=== PATIENT | female | born 1990 | race African-American/Black ===

== ENCOUNTER 2024-01-05 14:02 | Outpatient (CLI) | payer MEDICAID, SELFPAY ==
[2024-01-05 14:18] LABS: Hematocrit 35.7 % (37.0-47.0); Hemoglobin 12.3 g/dL (12.0-15.0); Mean Corpuscular HGB Conc 34.5 g/dl (32-36); Mean Corpuscular Hemoglobin 31.5 pg (26-34); Mean Corpuscular Volume 91.3 fl (80-100); Mean Platelet Volume 10.2 fl (7.4-10.4); Platelet Count Result 245 k/mm3 (150-375); Red Blood Count 3.91 M/mm3 (4.2-5.4); Red Cell Distribution Width 13.7 % (11.5-14.5); White Blood Count 6.6 K/mm3 (4.5-10.0)
[2024-01-05 15:12] LABS: Thyroid Stimulating Hormone 0.421 uIU/mL (0.465-4.680)
[2024-01-05 15:21] LABS: HIV 1/2 Ab P24 Ag Result Negative (Negative)
[2024-01-06 08:24] LABS: Rapid Plasma Reagin Non-Reactive (NonReactive)
== END 2024-01-05 14:03 | disposition home or self-care (01) ==
LOC: ANHLAB 14:04
PROVIDERS: Visit Provider Nurse Practitioner Obstetrics & Gynecology
DX: Z34.90 Encounter for supervision of normal pregnancy, unspecified, unspecified trimester (principal); Z3A.00 Weeks of gestation of pregnancy not specified
CPT/HCPCS: 36415; 84443; 85027; 86592; 86703; G0432

== ENCOUNTER 2024-02-08 06:21 | Inpatient (IN) | payer MEDICAID, SELFPAY ==
[2024-02-08] VITALS (41 sets, daily range): BP systolic 87–125; BP diastolic 45–80; PULSE 57–121; RESP 16; TEMP 36.1–36.5; BMI 36.5
[2024-02-08 07:09] LABS: Basophils Percent Auto 0.3 % (0.2-1.2); Eosinophils Absolute Auto 0.1 K/mm3 (0-0.3); Eosinophils Percent Auto 0.7 % (0-4.4); Hematocrit 35.5 % (37.0-47.0); Hemoglobin 12.3 g/dL (12.0-15.0); Immature Granulocyte Absolute 0.02 K/mm3 (0.00-0.031); Immature Granulocyte Percent A 0.3 % (0-0.5); Lymphocytes Absolute Auto 2.51 K/mm3 (0.9-3.2); Lymphocytes Percent Auto 36.6 % (18.3-44.2); Mean Corpuscular HGB Conc 34.6 g/dl (32-36); Mean Corpuscular Hemoglobin 31.6 pg (26-34); Mean Corpuscular Volume 91.3 fl (80-100); Mean Platelet Volume 10.9 fl (7.4-10.4); Monocytes Absolute Auto 0.5 K/mm3 (0.1-0.6); Neutrophils Absolute Auto 3.8 K/mm3 (1.3-6.7); Neutrophils Percent Auto 55.1 % (45.5-73.1); Platelet Count Result 232 k/mm3 (150-375); Red Blood Count 3.89 M/mm3 (4.2-5.4); White Blood Count 6.9 K/mm3 (4.5-10.0)
[2024-02-08] MEDS: miSOPROStol 25 MCG TABLET 50 MCG BUCCAL ×3 (07:20→19:32)
--- NOTE | 2024-02-08 07:20 | LDADM ---
This patient, Christy Holly, was admitted to Labor/Delivery/Recovery 107 on 02/08/24 at 06:21. Plans for labor, pain management and were discussed with patient. Patient/family oriented to hospital policies and general routines including ID bracelet, bed and alarms, visiting hours, pain management, procedures, bathroom and other care routines, personal items, smoking policy, room service/diet and guest tray routines, security routines, and visiting hours. Patient/Family are encouraged to report perceived risks to care and to ask questions if they do not understand what they are told or what they should do. See OBIX for further documentation.
[2024-02-08 08:08] LABS: HIV 1/2 Ab P24 Ag Result Negative (Negative)
[2024-02-08 13:05] LABS: Rapid Plasma Reagin Non-Reactive (NonReactive)
[2024-02-09] VITALS (311 sets, daily range): BP systolic 92–129; BP diastolic 34–104; PULSE 25–134; RESP 16; TEMP 36.3–36.6; O2SAT 83–100
[2024-02-09] MEDS: LACTATED RINGERS 1,000 ML 125 ML IV CONT ×4 (04:49→17:52)
[2024-02-09] MEDS: OXYTOCIN 30 UNITS/NS 500 ML 30 UNITS/500 ML BAG IV CONT (04:49)
[2024-02-09] MEDS: fentaNYL CITRATE INJ (*CRX) 100 MCG/2 ML VIAL 50 MCG IV PUSH (10:56)
[2024-02-09] MEDS: ONDANSETRON INJ 4 MG/2 ML VIAL IV PUSH (10:56)
--- NOTE | 2024-02-09 11:45 | P.HP_ITS ---
H&P: HPI History of Present Illness Date/Time: 02/09/24 11:45 Chief Complaint: Induction of labor Narrative: patient is a 33-year-old G 1 at 39 weeks with an EDC of 02/15/2024 by last menstrual period of 05/11/2023 consistent with 12 week ultrasound. course significant for transfer care at 34 weeks. Also she had a thickened nuchal fold on her 1st trimester ultrasound with normal NIPT male . History of LGA at 31 weeks though her last ultrasound in January was 64th percentile. Labs reviewed. GBS negative. she has been informed of risks benefits of induction of labor versus spontaneous labor. The father of the child is flying in from out of the country and [place],she request induction of labor. Review of Systems Review of Systems: All systems reviewed & are unremarkable except as noted in HPI and below Constitutional: Constitutional: Reports no additional constitutional complaints and Denies headache(s) Eyes: Eyes: Denies spots in vision ENT: Reports system reviewed and no additional complaints, except as documented and Denies headache(s) Cardiovascular: Cardiovascular: Denies chest pain and Denies dyspnea Respiratory: Respiratory: Denies dyspnea Gastrointestinal: Gastrointestinal: Reports no additional gastrointestinal complaints Genitourinary: Genitourinary: Reports amenorrhea Musculoskeletal: Musculoskeletal: Reports no additional musculoskeletal complaints Integumentary/Breasts: Skin/Breast: Denies breast mass and Denies rash Neurologic: Denies headache(s) Psychiatric: Psychiatric: Reports no additional psychiatric complaints [facility] Surgical History Surgical History H/O removal of cyst Family History Family History Grandparent Heart disease Hypertension Social History Social History Smoking status: Never smoker Second hand tobacco smoke exposure: No Alcohol intake: former Substance use: never Substance use type: does not use Do You Feel Safe in your Home?: Yes Lack of Transportation: No Lack of Food: Never True Current Housing: I Have Housing Concerned About Future Housing: No Difficulty Paying Gas/Electric Bills: No Difficulty Paying for Meds: No Currently Unemployed: No Education: High School Diploma/GED Difficulty w/ Childcare or Family Care: No Spiritual care concerns: No Meds Home Medications and Allergies Home Medications ?Medication ?Instructions ?Recorded ?Confirmed ?Type vit no.95-ferrous 1 tablet PO DAILY 02/08/24 02/08/24 History fumarate 28 mg-folic acid 800 mcg tablet () Allergies Allergy/AdvReac Type Severity Reaction Status Date / Time No Known Allergies Allergy Verified 02/08/24 07:37 Vital Signs Vital Signs - 24 hr 02/08/24 12:01 02/08/24 12:29 02/08/24 12:31 Temperature Pulse Rate 73 67 72 Respiratory Rate Blood Pressure 115/78 115/73 112/77 Pulse Oximetry 02/08/24 13:01 02/08/24 13:21 02/08/24 13:31 Temperature Pulse Rate 78 121 H 79 Respiratory Rate Blood Pressure 101/72 114/78 117/68 Pulse Oximetry 02/08/24 14:00 02/08/24 14:01 02/08/24 14:31 Temperature 97.4 F L Pulse Rate 70 66 Respiratory Rate 16 Blood Pressure 93/45 L 92/46 L Pulse Oximetry 02/08/24 15:01 02/08/24 15:31 02/08/24 16:01 Temperature Pulse Rate 101 H 65 61 Respiratory Rate Blood Pressure 100/66 104/63 95/47 L Pulse Oximetry 02/08/24 16:31 02/08/24 17:01 02/08/24 17:30 Temperature 97 F L Pulse Rate 88 66 Respiratory Rate 16 Blood Pressure 110/77 113/72 Pulse Oximetry 02/08/24 17:31 02/08/24 18:00 02/08/24 18:01 Temperature 97.6 F Pulse Rate 73 75 Respiratory Rate 16 Blood Pressure 121/75 110/72 Pulse Oximetry 02/08/24 18:31 02/08/24 19:27 02/08/24 19:31 Temperature Pulse Rate 79 70 67 Respiratory Rate Blood Pressure 125/80 109/78 117/76 Pulse Oximetry 02/08/24 20:01 02/08/24 20:31 02/08/24 21:01 Temperature Pulse Rate 70 67 70 Respiratory Rate Blood Pressure 118/73 116/72 118/75 Pulse Oximetry 02/08/24 21:31 02/08/24 22:00 02/08/24 22:01 Temperature 97 F L Pulse Rate 65 60 Respiratory Rate Blood Pressure 124/74 97/55 L Pulse Oximetry 02/08/24 22:47 02/08/24 23:01 02/08/24 23:31 Temperature Pulse Rate 66 58 L 57 L Respiratory Rate Blood Pressure 111/63 102/62 113/69 Pulse Oximetry 02/09/24 00:01 02/09/24 00:31 02/09/24 01:01 Temperature Pulse Rate 76 54 L 59 L Respiratory Rate Blood Pressure 113/81 92/53 L 97/52 L Pulse Oximetry 02/09/24 01:31 02/09/24 02:01 02/09/24 02:31 Temperature 97.3 F L Pulse Rate 53 L 50 L 54 L Respiratory Rate Blood Pressure 115/70 99/53 L 100/48 L Pulse Oximetry 02/09/24 02:40 02/09/24 02:45 02/09/24 02:50 Temperature Pulse Rate Respiratory Rate Blood Pressure Pulse Oximetry 98 98 99 02/09/24 02:55 02/09/24 03:00 02/09/24 03:01 Temperature Pulse Rate 68 Respiratory Rate Blood Pressure 118/68 Pulse Oximetry 98 99 02/09/24 03:05 02/09/24 03:10 02/09/24 03:15 Temperature Pulse Rate Respiratory Rate Blood Pressure Pulse Oximetry 98 98 98 02/09/24 03:20 02/09/24 03:25 02/09/24 03:30 Temperature Pulse Rate Respiratory Rate Blood Pressure Pulse Oximetry 98 98 99 02/09/24 03:31 02/09/24 03:35 02/09/24 03:40 Temperature Pulse Rate 56 L Respiratory Rate Blood Pressure 112/67 Pulse Oximetry 98 98 02/09/24 03:45 02/09/24 03:51 02/09/24 03:51 Temperature Pulse Rate Respiratory Rate Blood Pressure Pulse Oximetry 98 90 99 02/09/24 03:56 02/09/24 04:01 02/09/24 04:06 Temperature Pulse Rate 58 L Respiratory Rate Blood Pressure 95/57 L Pulse Oximetry 99 96 96 02/09/24 04:11 02/09/24 04:16 02/09/24 04:21 Temperature Pulse Rate Respiratory Rate Blood Pressure Pulse Oximetry 95 95 95 02/09/24 04:26 02/09/24 04:31 02/09/24 04:32 Temperature Pulse Rate Respiratory Rate Blood Pressure 101/70 Pulse Oximetry 96 95 96 02/09/24 04:37 02/09/24 04:42 02/09/24 04:50 Temperature 97.6 F Pulse Rate Respiratory Rate Blood Pressure Pulse Oximetry 98 97 02/09/24 04:52 02/09/24 04:57 02/09/24 05:01 Temperature Pulse Rate 67 Respiratory Rate Blood Pressure 110/61 Pulse Oximetry 99 100 02/09/24 05:02 02/09/24 05:07 02/09/24 05:12 Temperature Pulse Rate Respiratory Rate Blood Pressure Pulse Oximetry 100 99 97 02/09/24 05:17 02/09/24 05:22 02/09/24 05:27 Temperature Pulse Rate Respiratory Rate Blood Pressure Pulse Oximetry 100 98 97 02/09/24 05:31 02/09/24 05:32 02/09/24 05:37 Temperature Pulse Rate 54 L Respiratory Rate Blood Pressure 118/73 Pulse Oximetry 97 97 02/09/24 05:42 02/09/24 05:47 02/09/24 05:52 Temperature Pulse Rate Respiratory Rate Blood Pressure Pulse Oximetry 97 99 97 02/09/24 05:57 02/09/24 06:01 02/09/24 06:02 Temperature Pulse Rate 64 Respiratory Rate Blood Pressure 117/79 Pulse Oximetry 99 98 02/09/24 06:07 02/09/24 06:12 02/09/24 06:17 Temperature Pulse Rate Respiratory Rate Blood Pressure Pulse Oximetry 100 100 100 02/09/24 06:22 02/09/24 06:35 02/09/24 06:35 Temperature Pulse Rate Respiratory Rate Blood Pressure Pulse Oximetry 100 90 99 02/09/24 06:36 02/09/24 06:40 02/09/24 06:45 Temperature 97.4 F L Pulse Rate Respiratory Rate 16 Blood Pressure Pulse Oximetry 99 99 02/09/24 06:50 02/09/24 06:55 02/09/24 07:00 Temperature Pulse Rate Respiratory Rate Blood Pressure Pulse Oximetry 100 100 100 02/09/24 07:05 02/09/24 07:10 02/09/24 07:15 Temperature Pulse Rate Respiratory Rate Blood Pressure Pulse Oximetry 98 100 100 02/09/24 07:17 02/09/24 07:22 02/09/24 07:27 Temperature Pulse Rate Respiratory Rate Blood Pressure Pulse Oximetry 98 100 99 02/09/24 07:32 02/09/24 07:35 02/09/24 07:40 Temperature Pulse Rate Respiratory Rate Blood Pressure Pulse Oximetry 97 99 100 02/09/24 07:45 02/09/24 07:50 02/09/24 07:54 Temperature Pulse Rate Respiratory Rate Blood Pressure Pulse Oximetry 99 99 100 02/09/24 07:59 02/09/24 08:04 02/09/24 08:09 Temperature Pulse Rate Respiratory Rate Blood Pressure Pulse Oximetry 100 98 100 02/09/24 08:14 02/09/24 08:19 02/09/24 08:24 Temperature Pulse Rate Respiratory Rate Blood Pressure Pulse Oximetry 99 98 99 02/09/24 08:29 02/09/24 08:34 02/09/24 08:39 Temperature Pulse Rate Respiratory Rate Blood Pressure Pulse Oximetry 99 99 98 02/09/24 08:44 02/09/24 08:49 02/09/24 08:54 Temperature Pulse Rate Respiratory Rate Blood Pressure Pulse Oximetry 98 99 99 02/09/24 08:59 02/09/24 09:00 02/09/24 09:19 Temperature 97.6 F Pulse Rate Respiratory Rate Blood Pressure Pulse Oximetry 99 99 02/09/24 09:53 02/09/24 09:54 02/09/24 09:58 Temperature Pulse Rate 58 L Respiratory Rate Blood Pressure 123/96 H Pulse Oximetry 100 98 02/09/24 10:01 02/09/24 10:03 02/09/24 10:51 Temperature Pulse Rate 60 Respiratory Rate Blood Pressure 119/81 Pulse Oximetry 100 98 02/09/24 10:52 02/09/24 10:56 02/09/24 11:01 Temperature Pulse Rate 60 53 L Respiratory Rate Blood Pressure 122/74 123/79 Pulse Oximetry 100 100 02/09/24 11:06 02/09/24 11:11 02/09/24 11:16 Temperature Pulse Rate Respiratory Rate Blood Pressure Pulse Oximetry 99 98 98 02/09/24 11:21 02/09/24 11:26 02/09/24 11:31 Temperature Pulse Rate 57 L Respiratory Rate Blood Pressure 121/78 Pulse Oximetry 98 99 98 02/09/24 11:36 02/09/24 11:40 02/09/24 11:42 Temperature Pulse Rate Respiratory Rate Blood Pressure Pulse Oximetry 100 100 99 Exam Const: General: no acute distress Eyes: General: appearance normal, both eyes and all related structures Resp: Effort & Inspection: normal respiratory effort Cardio: Rate: regular rate GI: Other: Gravid no fundal tenderness no right upper quadrant pain Skin: General skin exam: no rashes or lesions noted Neuro: Cognition (Neuro): normal cognition Extrem: General: normal to inspection Psych: Mental Status: mental status grossly normal Assessment and Plan Assessment and plan (1) Elective induction of labor planned: Status: Acute Assessment and Plan: she agrees to induction of labor. 2. Admit 3. Cytotec and then subsequent Pitocin.
--- NOTE | 2024-02-09 11:57 | WPDOBADMIT ---
Obstetrics - Admit Note Admission Note: record reviewed. No pertinent additions to the history and/or any subsequent changes in the physical findings that are not consistent with the expected course of the were found. Additions to the history and/or subsequent changes in the physical findings follow. None.
--- NOTE | 2024-02-09 11:57 | PM.OBPNVD ---
OB - PN: Subj Subjective Date/time seen: 02/08/24 1015 Interval history: cat 1, cervix ext os . Continue Cytotec. OB - PN: Obj Data Labs 02/08/24 07:03 Labs: Laboratory Results - last 24 hr 02/08/24 07:03 RPR Non-reactive OB - PN A/P Time Spent With Patient Time: Total time spent is greater than 50% in coordination of care (as documented) at patient's floor/unit and/or counseling patient:
--- NOTE | 2024-02-09 11:58 | PM.OBPNVD ---
OB - PN: Subj Subjective Date/time seen: 01/12/24 1600 Interval history: cat 1, cervix ft/50%. OB - PN: Obj Data Labs 02/08/24 07:03 Labs: Laboratory Results - last 24 hr 02/08/24 07:03 RPR Non-reactive OB - PN A/P Time Spent With Patient Time: Total time spent is greater than 50% in coordination of care (as documented) at patient's floor/unit and/or counseling patient:
--- NOTE | 2024-02-09 11:59 | PM.OBPNVD ---
OB - PN: Subj Subjective Date/time seen: 02/09/24 1045 Interval history: fht 135,cat 2, occasional variables, she had SROM clear 1005, cervix 2/70/-2. Attempted IUPC placement, pt not tolerated. Discussed analgesia options, she request IV analgesia. OB - PN: Obj Data Labs 02/08/24 07:03 Labs: Laboratory Results - last 24 hr 02/08/24 07:03 RPR Non-reactive OB - PN A/P Time Spent With Patient Time: Total time spent is greater than 50% in coordination of care (as documented) at patient's floor/unit and/or counseling patient:
[2024-02-09] MEDS: fentaNYL CITRATE INJ (*CRX) 100 MCG/2 ML VIAL IV PUSH (12:18)
--- NOTE | 2024-02-09 13:57 | P.PNAN_ITS ---
Anes - Initial Pre Proc Eval Procedure: labor epidural Date/Time: 02/09/24 13:57 Surgeon: Zach Birmingham MD Pre Op Diagnosis: labor pain Pre Op Diagnosis: IOL Patient Data Age: 33 Gender: F Height: 1.65 m Weight: 99.5 kg Last Vital Signs Temp 36.4 C 02/09/24 13:55 Pulse 54 L 02/09/24 13:56 Resp 16 02/09/24 06:36 BP 112/64 02/09/24 13:56 Pulse Ox 100 02/09/24 13:55 O2 Del Method Room Air 02/08/24 07:20 Allergies Allergy/AdvReac Type Severity Reaction Status Date / Time No Known Allergies Allergy Verified 02/08/24 07:37 Home Medications ?Medication ?Instructions ?Recorded ?Confirmed ?Type vit no.95-ferrous 1 tablet PO DAILY 02/08/24 02/08/24 History fumarate 28 mg-folic acid 800 mcg tablet () Patient hx anesthesia problems: none Family hx anesthesia problems: none Results Review: All pre-operative results and documents have been reviewed as part of the pre-op erative evaluation. [facility] Surgical History Surgical History H/O removal of cyst Family History Family History Grandparent Heart disease Hypertension Social History Social History Smoking status: Never smoker Second hand tobacco smoke exposure: No Alcohol intake: former Substance use: never Substance use type: does not use Do You Feel Safe in your Home?: Yes Lack of Transportation: No Lack of Food: Never True Current Housing: I Have Housing Concerned About Future Housing: No Difficulty Paying Gas/Electric Bills: No Difficulty Paying for Meds: No Currently Unemployed: No Education: High School Diploma/GED Difficulty w/ Childcare or Family Care: No Spiritual care concerns: No Anes - Eval Final PreProcedure Day of Procedure 02/09/24 13:57 Patient weight: obese ASA classification: II Anesthetic plan: proceed Anesthesia type and monitoring: regional epidural and standard monitoring Results Review: All pre-operative results and documents have been reviewed as part of the pre- operative evaluation. Informed Consent: The patient's anesthetic plan and its attendant risks and benefits were discussed with the patient/family/POA. Questions were solicited and answers provided to the satisfaction of the patient/family/POA.
--- NOTE | 2024-02-09 17:17 | PM.OBPNLAB ---
Pain Control Date/time seen: 02/09/24 17:17 Pain control: epidural Pelvic Exam Dilation (cm): 5 Effacement (%): 90 station: -1 Amniotic membrane status: Ruptured Comments: head feels ROT/A Contractions Monitor mode: Internal Contraction frequency: 3 Contraction pattern: Regular Status status: Category ll Assessment and Plan Pitocin rate (mU/min): 2 Assessment: induction ongoing Plan: continuous present management Comments: had period of multiple severe variables @ 1545 and pitocin was held; tracing returned to category 1 and pitocin has been restarted at 2 now, will continue to monitor closely; moderate variability with accelerations is noted
[2024-02-10] VITALS (37 sets, daily range): BP systolic 104–151; BP diastolic 40–120; PULSE 55–204; RESP 14–16; TEMP 36.3–37.1; O2SAT 93–100
--- NOTE | 2024-02-10 01:20 | PM.OBPRVD ---
OB - Vaginal Delivery Note Procedure Delivery date: 02/10/24 Events: Elective Induction of Labor Induction method: Per Misoprostol Protocol and Per Pitocin Protocol Delivery augmentation: Rupture of Membranes Delivery monitor: External FHT and Internal Uterine Route of delivery: Episiotomy description: None Laceration Description: Perineal - 1st Degree Delivery repair: vicryl Specimen: Yes Quantitative Blood Loss (ml): 100 Anesthesia type: Epidural Disposition: Floor Complications: No immediate complications Baby Date of : 02/10/24 Time of : 01:06 Gestational Age by Date: 39 (.4) Infant gender: Male presentation: vertex position: Left Occiput Anterior Placenta delivery description: Expressed Cord Vessel Description: 3 Vessels and Delayed Cord Clamping score one minute: 9 score five minutes: 9 Narrative: Christy rapidly progressed from 4.5 cm to completely dilated with strong desire to push. She pushed for approximately 15 minutes with good maternal effort and delivered the head over intact perineum. No nuchal cord was palpated. She easily delivered the infant's shoulders without complications. The was immediately placed skin to skin and had good. Delayed cord clamping was performed. The umbilical cord was then doubly clamped and cut. A segment of the cord was collected for cord gases. The remaining cord blood was collected for typing. With Pitocin running and gentle downward traction on the cord, the placenta delivered without complications. Bimanual massage was performed and a moderate amount of bleeding was noted but the uterus was then noted to be firm with massage. She was examined and a very small first-degree perineal laceration was identified. The laceration was reapproximated using 1 single stitch of 2-0 Vicryl and good hemostasis was noted. Her uterus was noted to remain firm with minimal bleeding. Sponge, lap, instrument, and needle counts were correct at the end the procedure. Mom and baby were left bonding in the birthing suite in stable condition.
[2024-02-10] MEDS: OXYTOCIN 30 UNITS/NS 500 ML 30 UNITS/500 ML BAG 125 UNITS IV CONT (01:40)
--- NOTE | 2024-02-10 04:30 | OBPPTRN ---
Patient transferred to post room #282 via wheelchair. Support person present. Oriented to unit, room, information board, rooming in, admission packet and security measures. Patient verbalizes understanding.
--- NOTE | 2024-02-10 09:16 | PM.OBPNVD ---
OB - PN: Subj Subjective Date/time seen: 02/10/24 09:16 Narrative: PPD#0 Christy reports doing well today. 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 Her pain is controlled. She is tolerating regular diet, voiding, passing gas, and ambulating without issues. She is breast feeding. She would like her son circumcised, but he has not voided yet. OB - PN: Obj Data Labs 02/08/24 07:03 OB - PN A/P Assessment and Plan (1) Normal vaginal delivery of first : Code(s): O80 - Encounter for full-term uncomplicated delivery Status: Acute Plan day: 0 Plan: routine care Comments: - PO pain meds - Regular diet - Ambulation and hydration encouraged - Continue putting baby to breast q2-3hr Time Spent With Patient Time: Total time spent is greater than 50% in coordination of care (as documented) at patient's floor/unit and/or counseling patient: Review of Systems Constitutional: Constitutional: Denies chills, Denies fever(s) and Denies headache(s) Eyes: Eyes: Denies change in vision ENT: Denies dizziness and Denies headache(s) Cardiovascular: Cardiovascular: Denies chest pain, Denies palpitations and Denies dyspnea Respiratory: Respiratory: Denies cough and Denies dyspnea Gastrointestinal: Gastrointestinal: Denies nausea and Denies vomiting Neurologic: Denies dizziness and Denies headache(s) Endocrine: Endocrine: Denies palpitations Exam Const: General: cooperative, comfortable, no acute distress and obese Nutritional Appearance: obese Orientation/consciousness: patient oriented x3 Resp: Effort & Inspection: normal respiratory effort Auscultation: clear to auscultation bilaterally Cardio: Rate: regular rate GI: Inspection: non-distended GI Palp: No abdominal tenderness and Yes Soft to palpation Auscultation: normal bowel sounds : Other: fundus firm Skin: General skin exam: normal color Neuro: General: patient oriented x3 Extrem: General: normal to inspection Psych: Appearance: grossly normal Affect: normal affect Attitude: cooperative
[2024-02-10] MEDS: IBUPROFEN 600 MG TABLET PO ×2 (10:39→18:41)
[2024-02-10] MEDS: MULTIVIT/MIN/PREN/FOL AC/IRON TABLET 1 TAB PO (10:39)
--- NOTE | 2024-02-10 12:55 | PC.NURSE ---
Met with mother to discuss needs. She was about to feed baby and was was trying a cradle hold. Baby was eager but unable to altch deeply. Suggested we try football hold, mother has large breasts and this may be easier for her to see. Assisted mother to latch infant to the [left] breast in [football] position. Infant [was] able to maintain an appropriate latch after a few attempts. We needed to pinch the tissue close to the nipple to facilitate a deep and consistent latch. Mother [complains of] nipple pain [with initial latch on]. Discussed that it shouldn't be painful or pinching throughout the entire feeding. Encouraged mother to keep infant awake and nursing at the breast for 15 minutes. Mother taught to listen for infant swallowing during feedings. Intermittent swallowing heard. Baby was suckling well with brief pauses. Reviewed using the blue feeding sheet to record time and duration of feeding. admission packet given. Mother voiced understanding of the education shared, to call for assistance if the does not latch or if there is discomfort with . name/number on communication board. Reported to the Primary RN.
[2024-02-10] MEDS: ACETAMINOPHEN 325 MG TABLET 650 MG PO (18:41)
[2024-02-11] MEDS: ACETAMINOPHEN 325 MG TABLET 650 MG PO ×4 (02:40→22:56)
[2024-02-11] MEDS: IBUPROFEN 600 MG TABLET PO ×4 (02:40→22:57)
[2024-02-11 04:51] LABS: Hematocrit 33.5 % (37.0-47.0); Hemoglobin 11.3 g/dL (12.0-15.0); Mean Corpuscular HGB Conc 33.7 g/dl (32-36); Mean Corpuscular Volume 94.9 fl (80-100); Mean Platelet Volume 10.7 fl (7.4-10.4); Platelet Count Result 201 k/mm3 (150-375); Red Blood Count 3.53 M/mm3 (4.2-5.4); Red Cell Distribution Width 14.5 % (11.5-14.5)
[2024-02-11 05:38] VITALS: BP 110/73; PULSE 72; RESP 14; TEMP 36.9; O2SAT 100
--- NOTE | 2024-02-11 07:39 | PM.OBPNVD ---
OB - PN: Subj Subjective Date/time seen: 02/11/24 07:39 Narrative: PPD#1 Christy reports doing well today. 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 Her pain is controlled. She is tolerating regular diet, voiding, passing gas, and ambulating without issues. She is breast feeding. She would like her son circumcised. She would like to stay until tomorrow. OB - PN: Obj Data Labs 02/11/24 04:43 Labs: Laboratory Results - last 24 hr 02/11/24 04:43 WBC 14.0 H RBC 3.53 L Hgb 11.3 L Hct 33.5 L MCV 94.9 MCH 32.0 MCHC 33.7 RDW 14.5 Plt Count 201 MPV 10.7 H OB - PN A/P Assessment and Plan (1) Normal vaginal delivery of first : Code(s): O80 - Encounter for full-term uncomplicated delivery Status: Acute Plan day: 1 Plan: routine care Comments: - PO pain meds - Regular diet - Ambulation and hydration encouraged - Continue putting baby to breast q2-3hr - Circumcision performed without issue - Pelvic rest; take meds as prescribed - ER return precautions: fever, n/v/abd pain, bleeding, HTN Time Spent With Patient Time: Total time spent is greater than 50% in coordination of care (as documented) at patient's floor/unit and/or counseling patient: Review of Systems Constitutional: Constitutional: Denies chills, Denies fever(s) and Denies headache(s) Eyes: Eyes: Denies change in vision ENT: Denies dizziness and Denies headache(s) Cardiovascular: Cardiovascular: Denies chest pain, Denies palpitations and Denies dyspnea Respiratory: Respiratory: Denies cough and Denies dyspnea Gastrointestinal: Gastrointestinal: Denies nausea and Denies vomiting Neurologic: Denies dizziness and Denies headache(s) Endocrine: Endocrine: Denies palpitations Exam Const: General: cooperative, comfortable and no acute distress Nutritional Appearance: obese Orientation/consciousness: patient oriented x3 Resp: Effort & Inspection: normal respiratory effort Auscultation: clear to auscultation bilaterally Cardio: Rate: regular rate GI: Inspection: non-distended GI Palp: No abdominal tenderness and Yes Soft to palpation Auscultation: normal bowel sounds : Other: fundus firm Skin: General skin exam: normal color Neuro: General: patient oriented x3 Extrem: General: normal to inspection Psych: Appearance: grossly normal Affect: normal affect Attitude: cooperative
--- NOTE | 2024-02-11 07:41 | PM.OBDSVD ---
DS: Admitting Diagnosis Discharge Date 02/12/24 Admitting Diagnosis Elective induction of labor DS: Discharge Diagnosis Discharge Diagnosis (1) Normal vaginal delivery of first : Code(s): O80 - Encounter for full-term uncomplicated delivery Status: Acute OB - DS: Summary OB Procedures : Ultrasound OB Procedures Intrapartum: Spontaneous Vag Delivery OB Procedures: : None Peripartum Data Infant Delivery Method: Natural Vaginal Laceration Description: Perineal - 1st Degree Episiotomy description: None complications: none [place] 1: Gender: Male Disposition of : home Status at Discharge Functional status at discharge: independent ambulation Overall status at discharge: patient is back to baseline Time Spent with Patient Time attestation: Total time spent providing and/or coordinating discharge services: Exam Const: General: cooperative, comfortable, no acute distress and obese Nutritional Appearance: obese Orientation/consciousness: patient oriented x3 Resp: Effort & Inspection: normal respiratory effort Auscultation: clear to auscultation bilaterally Cardio: Rate: regular rate GI: Inspection: non-distended GI Palp: No abdominal tenderness and Yes Soft to palpation Auscultation: normal bowel sounds : Other: fundus firm Skin: General skin exam: normal color Neuro: General: patient oriented x3 Extrem: General: normal to inspection Psych: Appearance: grossly normal Affect: normal affect Attitude: cooperative Discharge Plan Discharge Attending physician on discharge: Samira New Discharging Clinician: Samira New Anticipated Discharge Date/Time: 02/12/24 10:00 Patient Disposition: Home, Self-Care Activity: may shower and pelvic rest Diet: regular Patient Instructions: Vaginal Delivery (DC) Patient Language: Danish Stand Alone Forms: General Discharge Information Follow-up/Referrals: Zach Birmingham MD [Physician] - Call for Appointment Discharge Medications: New acetaminophen 325 mg Tablet 650 mg PO Q6H PRN (Reason: Mild Pain (1-3) Or Headache) Qty: 90 0RF docusate sodium 100 mg Capsule 100 mg PO BID PRN (Reason: Constipation) Qty: 90 0RF ibuprofen 600 mg Tablet 600 mg PO Q6H PRN (Reason: Cramping) Qty: 60 0RF Continued PNV cmb#95-ferrous fumarate-FA [] 28 mg iron- 800 mcg tablet 1 tablet PO DAILY Date of admission: 02/08/24 06:21 Primary Care Provider: UNKNOWN,DOCTOR Admitting Provider: Zach Birmingham Attending physician on admission: Zach Birmingham Condition: Stable
[2024-02-11 08:05] VITALS: BP 111/76; PULSE 61; RESP 18; TEMP 36.6; O2SAT 100
[2024-02-11] MEDS: DOCUSATE SODIUM 100 MG CAPSULE PO ×2 (08:44→16:00)
[2024-02-11] MEDS: MULTIVIT/MIN/PREN/FOL AC/IRON TABLET 1 TAB PO (08:45)
--- NOTE | 2024-02-11 10:45 | PC.NURSE ---
[id number] Introductions were made, then consulted with patient to assess needs related to . Mother led the conversation with her?plans to feed?her infant and the?experience so far. mother plans on exclusively and has had some nipple soreness with initial latch but then the soreness goes away. Encouraged understanding of the benefits of skin to skin (demonstrating unwrapping and placing upright on her chest), stimulating with massage touch, changing positions to encourage wakefulness, how to watch for early feeding cues, responsive feeding, feeding on demand (aiming for 8-12 times in 24 hours, about every 2-3 hours), milk production, building/maintaining a milk supply, duration of feeding, signs of adequate intake/output and how to record on the feeding sheet. Mother works well with her with encouragement and education. Reviewed positioning and ear, shoulder, hip alignment, supporting the breast to facilitate a deep latch, asymmetrical latch (off-center), leading with the chin with a big, open, wide gape and body close to mother. Infant latched optimally to the [left] breast in [football] position for 20 minutes, mother then burped and independently latched baby on her own to the right breast in football position. Education given to the mother of how to visualize the suckling (with good rocking jaw motion), swallows (dropping of the lower jaw) and how to listen for drinking at the breast (the ka sound). was [able] to maintain latch without pain to mother protecting the nipple with optimal positioning and latching. Reviewed comfort measures of healing with a warm, wet washcloth to rinse breast, then leave open to air-dry, good handwashing when or touching the breast/nipples to prevent infection. Mother voiced understanding of skin to skin, stimulating with massage touch, responsive feedings, hand expressed colostrum, talking to to encourage if it has been 2 -2.5 hours since the start of the last , to call if does not latch, or if there is discomfort with . Resources used for education were facilitated with the [visual educational handouts/ tool/mom and baby guide], Inpatient/outpatient resources provided with business card, feeding sheet, name written on the communication board, and the mom/baby guide. Parents voiced understanding of information, demonstrated learning and will call if there is a request for assistance. Reported to the Primary RN.
--- NOTE | 2024-02-11 13:26 | WPDANLDPN2 ---
Anes-Prog Note L&D Date/Time: 02/11/24 13:26 Comfortable throughout: labor and delivery Neuraxial method: epidural Epidural/Spinal procedure site: clean & non-tender Neuro status: Neuro function grossly intact. Cardiovascular status: normal Respiratory status: normal Airway patency: baseline Mental status: baseline Post-Op hydration status: normal Vital Signs: Last Vital Signs Temp 36.6 C 02/11/24 08:05 Pulse 61 02/11/24 08:05 Resp 18 02/11/24 08:05 BP 111/76 02/11/24 08:05 Pulse Ox 100 02/11/24 08:05 O2 Del Method Room Air 02/11/24 08:00 Pain score (VAS): 1 I/O: Intake & Output 02/10/24 02/11/24 02/11/24 23:59 07:59 15:59 Intake Total 200 Balance 200 Patient feedback: Patient satisfied with anesthetic care.
[2024-02-11 20:20] VITALS: BP 105/72; PULSE 60; RESP 16; TEMP 37.1; O2SAT 99
[2024-02-12 09:04] VITALS: BP 120/86; PULSE 53; RESP 16; TEMP 36.8; O2SAT 100
[2024-02-12] MEDS: MULTIVIT/MIN/PREN/FOL AC/IRON TABLET 1 TAB PO (09:54)
[2024-02-12] MEDS: ACETAMINOPHEN 325 MG TABLET 650 MG PO (09:55)
[2024-02-12] MEDS: IBUPROFEN 600 MG TABLET PO (09:56)
[2024-02-12] MEDS: LANOLIN (LANSINOH) 7.5 GM CREAM 1 APPLIC TOPICAL (09:56)
--- NOTE | 2024-02-12 10:00 | PC.NURSE ---
Consulted with mother concerning needs and she shared her ability to independently latch infant optimally without pain. Mother is feeding appropriately for growth of and understands stimulating to eat if needed. Infant has had appropriate feedings in the last 24 hours meets the outcomes for weight, output, blood sugar and jaundice at this time. Reinforced understanding of milk production, transition of milk, signs of adequate intake, transition of stool, prevention/relief of engorgement, plugged ducts, mastitis, responsive watching for feeding cues, community resources ([facility] referral faxed to [place]), and when to call a provider using the resource of the feeding sheet along with the mom and baby guide. Mother voiced understanding of the information shared, is confident to continue effectively her infant at home, when to call for assistance, denies any additional assistance or education at this time. Reported to the Primary RN.
[2024-02-13 08:50] VITALS: BP 116/55; PULSE 82; RESP 18; TEMP 36.9; O2SAT 100
--- OUTSIDE RECORDS SUMMARY | 2024-02-15 06:10 | XMS_ITS | Encounter Summary ---
Author Organization [facility] Address [address] [place] [address] Care Team Providers Care Bean Dumper Name Role Phone Unavailable Primary Care Provider Unavailabl e Reason for Visit * Radiology Services (Routine) - Closed Specialty Diagnoses / Procedures Referred By Ayaan t Referred To Contact Diagnoses screening for malformation using ultrasonics Large for dates Procedures US OB DETAIL SINGLE GEST US OB 14+ WKS SINGLE GEST Zach Ward MD [address] [address] [facility] [address] [place] [address] Referral ID Status Reason Start Date Expiration Date Visits Re quested Visits Authorized [id number] Closed 01/05/2024 02/09/2024 1 1 Encounter Details Date Type Department Care Team (Latest Contact Info) Description 01/21/2024 9:11 AM GRINDING OPERATOR - 01/21/2024 11:59 PM GRINDING OPERATOR Hospital Encounter [facility] [address] [place] [address] Zach Ward MD [address] [address] Discharge Disposition: Home or Self Care Social History Tobacco Use Types Packs/Day Years Used Date Smoking Tobacco: Never Assessed Sex and Gender Information Value Date Recorded Sex Assigned at Not on file Gender Identity Not on file Sexual Orientation Not on file documented as of this encounter Plan of Treatment Not on file documented as of this encounter Procedures Procedure Name Priority Date/Time Associated Diagnosis Comments US OB DETAIL SINGLE GEST Routine 01/21/2024 10:07 AM GRINDING OPERATOR screening for malformation using ultrasonics Large for dates documented in this encounter Results * US OB DETAIL SINGLE GEST (01/21/2024 10:07 AM GRINDING OPERATOR) Anatomical Region Laterality Modality Pelvis Ultrasound 01/21/2024 9:30 AM GRINDING OPERATOR Narrative 01/21/2024 11:03 AM GRINDING OPERATOR STL COMP ----- Pat. Name: LEONOR ALONSO Study Date: 01/21/2024 9:30am Pat. NO: [id number] Referring ??MD: ZACH WARD MD Site: [facility] Temperer: Caterina Bentley RDMS : 1990 Age: 33 ----- INDICATION ----- Anatomy Survey Large for dates Maternal Obesity (BMI<40) Complicating CODING ----- Diagnoses ? Z3A.36: Weeks of gestation ?O36.63X0: Maternal care for excessive growth ?Z36.3: Encounter for screening for malformations ?Z3A.36: Weeks of gestation ?O99.213: Obesity complicating ?O36.63X0: Maternal care for excessive growth Procedures ?70781: Ultrasound, uterus, real time with image documentation, and maternal evaluation ?plus detailed anatomic examination, transabdominal approach HISTORY ----- OB History ? 1. Para 0 MATERNAL ASSESSMENT ----- Physical Exam ? Weight 99 kg. Initial weight 91 kg, 200 lb. BMI 36.28 kg/m??. Initial BMI 33.28 kg/m??. Weight gain 8 kg, ?18 lb METHOD ----- Transabdominal ultrasound examination ----- Jarrell . Number of fetuses: 1 DATING ----- Method of dating: based on stated PANKAJ GA by prior assessment 36 w + 3 d PANKAJ by prior assessment: 02/15/2024 Ultrasound examination on: 01/21/2024 GA by U/S based upon: AC, BPD, EFW, Femur, HC GA by U/S 36 w + 5 d PANKAJ by U/S: 02/13/2024 Assigned: based on stated PANKAJ, selected on 01/21/2024 Assigned GA 36 w + 3 d Assigned PANKAJ: 02/15/2024 BIOMETRY ----- BPD ?86.0 ? mm ? 34w 5d ? 15% ?Hadlock OFD ?119.1 ?mm ? -/- ? 99% ?Jessi HC ? 330.4 ?mm ? 37w 4d ? 50% ?Hadlock Cerebellum tr ?47.0 ? mm ? 36w 0d ? 64% ?Muñiz AC ? 332.9 ?mm ? 37w 1d ? 81% ?Hadlock Femur ?71.8 ? mm ? 36w 5d ? 56% ?Hadlock Humerus ?64.9 ? mm ? 37w 5d ? 92% ?Jessi HC / AC ?0.99 ?33% ? Nicolaides Weight Calculation: EFW ? 3,047 ? g ? 37w 1d ?64% ?Hadlock EFW (lb,oz) ? 6 lb 11 ? oz EFW by ?Hadlock ([id number]) Head / Face / Neck Biometry: Application Project Leader ? 6.6 ? mm CM ? 5.9 ? mm ? 10% ?Nicolaides Outer IOD ? 50.0 ?mm ? 31w 2d ?<1% ?Jessi Extremities / Bony Struc Biometry: FL / BPD ?0.83 FL / HC ? 0.22 FL / AC ? 0.22 GENERAL EVALUATION ----- Cardiac activity present. FHR 158 bpm. movements: present. Presentation: cephalic Placenta: Placental site: anterior Umbilical cord: Cord vessels: 3 vessel cord. Insertion site: placental insertion: normal Amniotic fluid: Amount of AF: normal amount. MVP 6.4 cm. JOSÉ 14.6 cm. Q1 6.4 cm, Q2 2.6 cm, Q3 3.3 cm, Q4 2.4 cm ANATOMY ----- The following structures appear normal: Head / Neck ? Cranium. Lateral ventricles. Choroid plexus. Midline falx. Cavum septi pellucidi. Cerebellum. Cisterna ?magna. Thalami. ?Nuchal fold. Face ?Lips. Profile. Nose. Palate. Orbits. Heart / Thorax ?4-chamber view. RVOT view. LVOT view. 3-vessel view. 2-hnwfli-awfsxpc view. Situs. Superior vena cava. ?Inferior vena cava. High short axis view. Cardiac rhythm. ?Diaphragm. Abdomen ? Stomach. Kidneys. Bladder. Genitals. Spine ? Cervical spine. Thoracic spine. Lumbar spine. Sacral spine. Extremities / ? Right arm. Left forearm. Legs. Right foot. Left foot. Skeleton The following structures could not be adequately visualized: Heart / Thorax ?Aortic arch view. Ductal arch view. Abdomen ? Abdominal wall. Extremities / ? Right hand. Left upper arm. Left hand. Skeleton The following structures could not be visualized: Abdomen ? Cord insertion. MATERNAL STRUCTURES ----- Cervix ?Visualized ?Approach - Transabdominal Right Ovary ? Suboptimal Left Ovary ?Suboptimal GROWTH OVERVIEW ----- Exam date ? GA ?BPD (mm) ? HC (mm) ?AC (mm) ? FL (mm) ?HL (mm) ?EFW (g) 01/21/2024 ?36w 3d ?86.0 ?15% ?330.4 ? 50% ?332.9 ?81% ?71.8 ?56% ?64.9 ?92% ? 3,047 ? 64% COMMENT ----- Patient's name and date of were verified by the associate media director before the exam IMPRESSION ----- Summary of Findings: A detailed anatomic survey was performed. Ultrasound was used to both evaluate structural abnormalities and to evaluate more subtle features of the face and extremities that could indicate aneuploidy. Detailed anatomic survey was performed due to maternal obesity. 1. Single living fetus with gestational age of 36w 3d, (PANKAJ = 02/15/2024), based on the reported clinical dates. 2. Detailed anatomic survey is incomplete due to advanced gestational age and position. No structural abnormalities are identified. AA, DA, DETENTION, left upper arm, and hands suboptimal. 3. The amniotic fluid volume is 14.6 cm with maximum vertical pocket of 6.4 cm. 4. Estimated weight is 3047 g (64%ile). 5. Placenta is anterior. No previa. Normal cord insert. The presence of a normal anatomic survey does not rule out genetic, chromosomal or structural anomalies. Recommendation: - Follow up as clinically indicated. Thank you for inviting us to participate in your patient's care. ADDENDUM ----- retrigger order Procedure Note Jayne Carmona MD - 01/21/2024 STL COMP ----- PatBrandon Name:Allison ALONSO Date:01/21/2024 9:30am Pat. NO: [id number] MD:ZACH WARD [facility]Caterina Bentley RDMS :1990Age:33 ----- INDICATION ----- Anatomy Survey Large for dates Maternal Obesity (BMI<40) Complicating CODING ----- Diagnoses Z3A.36: Weeks of gestation O36.63X0: Maternal care for excessive fetalgrowth Z36.3: Encounter for screening formalformations Z3A.36: Weeks of gestation O99.213: Obesity complicating O36.63X0: Maternal care for excessive fetalgrowth Procedures [id number]: Ultrasound, uterus, real time withimage documentation, and maternal evaluation plus detailed anatomic examination,transabdominal approach HISTORY ----- OB History 1. Para 0 MATERNAL ASSESSMENT ----- Physical Exam Weight 99 kg. Initial weight 91 kg, 200 lb. BMI36.28 kg/m??. Initial BMI 33.28 kg/m??. Weight gain 8 kg, 18 lb METHOD ----- Transabdominal ultrasound examination ----- Jarrell . Number of fetuses: 1 DATING ----- Method of dating:based on stated PANKAJ GA by prior w + 3 d PANKAJ by prior assessment:02/15/2024 Ultrasound examination on:01/21/2024 GA by U/S based upon:AC, BPD, EFW, Femur, HC GA by U/S36 w + 5 d PANKAJ by U/S:02/13/2024 Assigned:based on stated PANKAJ, selected on 01/21/2024 Assigned GA36 w + 3 d Assigned PANKAJ:02/15/2024 BIOMETRY ----- BPD 86.0 mm 34w 5d15% Hadlock OFD 119.1 mm -/-99% Jessi HC 330.4 mm 37w 4d50% Hadlock Cerebellum tr 47.0 mm 36w 0d64% Mary Kay AC 332.9 mm 37w 1d81% Hadlock Femur 71.8 mm 36w 5d56% Hadlock Humerus 64.9 mm 37w 5d92% Jessi HC / AC 0.99 33%Nicolaides Weight Calculation: EFW 3,047 g 37w 1d64% Hadlock EFW (lb,oz) 6 lb 11 oz EFW by Hadlock (LQI-EG-[id number]-FL) Head / Face / Neck Biometry: Application Project Leader 6.6 mm CM 5.9 mm 10%Nicolaides Outer IOD 50.0 mm 31w 2d <1%Jessi Extremities / Bony Struc Biometry: FL / BPD 0.83 FL / HC 0.22 FL / AC 0.22 GENERAL EVALUATION ----- Cardiac activity present. FHR 158 bpm. movements: present.Presentation: cephalic Placenta: Placental site: anterior Umbilical cord: Cord vessels: 3 vessel cord. Insertion site: placentalinsertion: normal Amniotic fluid: Amount of AF: normal amount. MVP 6.4 cm. JOSÉ 14.6 cm. Q16.4 cm, Q2 2.6 cm, Q3 3.3 cm, Q4 2.4 cm ANATOMY ----- The following structures appear normal: Head / Neck Cranium. Lateral ventricles. Choroid plexus.Midline falx. Cavum septi pellucidi. Cerebellum. Cisterna magna. Thalami. Nuchal fold. Face Lips. Profile. Nose. Palate. Orbits. Heart / Thorax 4-chamber view. RVOT view. LVOT view. 3-vesselview. 9-kjeqhn-puyabyh view. Situs. Superior vena cava. Inferior vena cava. High short axis view. Cardiacrhythm. Diaphragm. Abdomen Stomach. Kidneys. Bladder. Genitals. Spine Cervical spine. Thoracic spine. Lumbar spine.Sacral spine. Extremities / Right arm. Left forearm. Legs. Right foot. Leftfoot. Skeleton The following structures could not be adequately visualized: Heart / Thorax Aortic arch view. Ductal arch view. Abdomen Abdominal wall. Extremities / Right hand. Left upper arm. Left hand. Skeleton The following structures could not be visualized: Abdomen Cord insertion. MATERNAL STRUCTURES ----- Cervix Visualized Approach - Transabdominal Right Ovary Suboptimal Left Ovary Suboptimal GROWTH OVERVIEW ----- Exam date GA BPD (mm) HC (mm) AC (mm) FL(mm) HL (mm) EFW (g) 01/21/2024 36w 3d 86.0 15% 330.4 50% 332.9 81%71.8 56% 64.9 92% 3,047 64% COMMENT ----- Patient's name and date of were verified by the associate media director beforethe exam IMPRESSION ----- Summary of Findings: A detailed anatomic survey was performed.Ultrasound was used to both evaluate structural abnormalities and to evaluate more subtle features of the face andextremities that could indicate aneuploidy. Detailed anatomic survey was performed due to maternal obesity. 1. Single living fetus with gestational age of 36w 3d, (PANKAJ = 02/15/2024),based on the reported clinical dates. 2. Detailed anatomic survey is incomplete due to advanced gestational ageand position. No structural abnormalities are identified. AA, DA, DETENTION, left upper arm, and hands suboptimal. 3. The amniotic fluid volume is 14.6 cm with maximum vertical pocket of6.4 cm. 4. Estimated weight is 3047 g (64%ile). 5. Placenta is anterior. No previa. Normal cord insert. The presence of a normal anatomic survey does not rule out genetic,chromosomal or structural anomalies. Recommendation: - Follow up as clinically indicated. Thank you for inviting us to participate in your patient's care. ADDENDUM ----- retrigger order Zach Ward MD US ORDERABLES documented in this encounter Visit Diagnoses Diagnosis screening for malformation using ultrasonics Encounter for routine screening for malformation using ultrasonics Large for dates Other cehkx-mjr-wluoo infants documented in this encounter
--- OUTSIDE RECORDS SUMMARY | 2024-02-15 06:10 | XMS_ITS | Clinical Summary ---
Author Organization [facility] Address [address] [place] [phone] Phone Care Team Providers Care Spiritual Care Coordinator Name Role Phone Unavailable Primary Care Provider Unavailabl e Encounters Date Type Department Care Team Description 01/26/2024 External Device Data STL ABSTRACTION Provider, Abstract 01/21/2024 9:11 AM CIRCULAR STUFFER - 01/21/2024 11:59 PM CIRCULAR STUFFER Hospital Encounter [facility] Maternal and [facility] [address] [place] [address] Zach Ward MD Discharge Disposition: Home or Self Care from Last 3 Months Social History Tobacco Use Types Packs/Day Years Used Date Smoking Tobacco: Never Assessed Sex and Gender Information Value Date Recorded Sex Assigned at Not on file Gender Identity Not on file Sexual Orientation Not on file Plan of Treatment Health Maintenance Due Date Last Done Comments DTAP/TDAP/TD VACCINES (1 - Tdap) 10/05/2010 HEPATITIS B VACCINES (1 of 3 - 19+ 3-dose series) 10/05/2010 CERVICAL CANCER SCREENING 10/05/2021 INFLUENZA VACCINE (#1) 2023 HPV VACCINES Aged Out No longer eligi ble based on patient's age to complete this topic PNEUMOCOCCAL VACCINE 0-64 YEARS Aged Out No longer eligible based on patient's age to complete this topic Procedures Procedure Name Priority Date/Time Associated Diagnosis Comments US OB DETAIL SINGLE GEST Routine 01/21/2024 10:07 AM CIRCULAR STUFFER screening for malformation using ultrasonics Large for dates from Last 3 Months Results * US OB DETAIL SINGLE GEST (01/21/2024 10:07 AM CIRCULAR STUFFER) Anatomical Region Laterality Modality Pelvis Ultrasound 01/21/2024 9:30 AM CIRCULAR STUFFER Narrative 01/21/2024 11:03 AM CIRCULAR STUFFER STL COMP ----- Pat. Name: LEONOR ALONSO Study Date: 01/21/2024 9:30am Pat. NO: [id number] Referring ??MD: ZACH AWRD MD Site: [place] Application Architect Manager: Caterina Bentley RDMS : 1990 Age: 33 ----- INDICATION ----- Anatomy Survey Large for dates Maternal Obesity (BMI<40) Complicating CODING ----- Diagnoses ? Z3A.36: Weeks of gestation ?O36.63X0: Maternal care for excessive growth ?Z36.3: Encounter for screening for malformations ?Z3A.36: Weeks of gestation ?O99.213: Obesity complicating ?O36.63X0: Maternal care for excessive growth Procedures ?44689: Ultrasound, uterus, real time with image documentation, [...] ?119.1 ?mm ? -/- ? 99% ?Jessi ? 330.4 ?mm ? 37w 4d ? [...] lb 11 ? oz EFW by ?Hadlock ([id number]) Head / Face / Neck Biometry: Truck Driver ? 6.6 ? mm CM ? 5.9 [...] view. RVOT view. LVOT view. 3-vessel view. 7-jnyuyy-ddvzoyg view. Situs. Superior vena cava. ?Inferior vena [...] and date of were verified by the dancing teacher before the exam IMPRESSION ----- Summary of [...] No structural abnormalities are identified. AA, DA, RESIDENTIAL, left upper arm, and hands suboptimal. 3. [...] Carmona MD - 01/21/2024 STL COMP ----- Pat. Name:Allison ALONSO Date:01/21/2024 9:30am Pat. NO: [id number] :ZACH WARD MD [facility] Bent[facility] RDMS :1990Age:33 ----- INDICATION ----- Anatomy Survey Large for dates Maternal Obesity (BMI<40) Complicating CODING ----- Diagnoses Z3A.36: Weeks of gestation O36.63X0: Maternal care for excessive fetalgrowth Z36.3: Encounter for screening formalformations Z3A.36: Weeks of gestation O99.213: Obesity complicating O36.63X0: Maternal care for excessive fetalgrowth Procedures 30701: Ultrasound, uterus, real time withimage documentation, and [...] dating:based on stated PANKAJ GA by prior [id number] w + 3 d PANKAJ by prior [...] Hadlock Cerebellum tr 47.0 mm 36w 0d64% Muñiz AC 332.9 mm 37w 1d81% Hadlock Femur 71.8 mm 36w 5d56% Hadlock Humerus 64.9 mm 37w 5d92% Jessi HC / AC 0.99 33%Nicolaides Weight Calculation: EFW 3,047 g 37w 1d64% Hadlock EFW (lb,oz) 6 lb 11 oz EFW by Hadlock ([id number]) Head / Face / Neck Biometry: Truck Driver 6.6 mm CM 5.9 mm 10%Nicolaides Outer [...] 4-chamber view. RVOT view. LVOT view. 3-vesselview. 9-spqozx-femkhcq view. Situs. Superior vena cava. Inferior vena [...] and date of were verified by the dancing teacher beforethe exam IMPRESSION ----- Summary of Findings: [...] No structural abnormalities are identified. AA, DA, RESIDENTIAL, left upper arm, and hands suboptimal. 3. [...] retrigger order Zach Ward MD US ORDERABLES from Last 3 Months
--- OUTSIDE RECORDS SUMMARY | 2024-02-15 06:10 | XMS_ITS | Encounter Summary ---
Author Organization [facility] Address [address] [place] [address] Care Team Providers Care Control Systems Engineer Name Role Phone Unavailable Primary Care Provider Unavailabl e Encounter Details Date Type Department Care Team (Late st Contact Info) Description 01/26/2024 External Device Data STL ABSTRACTION Provider, Abstract NO ADDRESS ON FILE Social History Tobacco Use Types Packs/Day Years Used Date Smoking Tobacco: Never Assessed Sex and Gender Information Value Date Recorded Sex Assigned at Not on file Gender Identity Not on file Sexual Orientation Not on file documented as of this encounter Plan of Treatment Not on file documented as of this encounter Visit Diagnoses Not on filedocumented in this encounter
== END 2024-02-12 15:33 | disposition home or self-care (01) | DRG 560 ==
LOC: ANHLDR 10:40 → ANHOB2 02-10 10:20 → ANHLDR 02-16 10:23
PROVIDERS: Admitting Provider Obstetrics & Gynecology; Visit Provider Obstetrics & Gynecology
DX: O36.8330 Maternal care for abnormalities of the fetal heart rate or rhythm, third trimester, not applicable or unspecified (principal); Z37.0 Single live birth; Z3A.39 39 weeks gestation of pregnancy; O70.0 First degree perineal laceration during delivery
CPT/HCPCS: 36415; 85025; 85027; 86592; 86703; 86850; 86900; 86901; A9270; G0432; J2405; J2590; J2795; J3010; J7120

== ENCOUNTER 2024-03-21 15:00 | Outpatient (RCR) | payer OTHER, SELFPAY ==
--- NOTE | 2024-03-21 15:30 | PC.NURSE ---
In- 1335 Out- 1442 Reason for visit: Pain with pumping, concern of decrease in milk supply and proper weight gain of infant History: This patient Christy Holly delivered vaginally at [facility] on [birth year] at 39+4 weeks. She has exclusively breast fed infant so far. She had no major complications during delivery, and takes no medications. She reports she has been pumping and feeding infant as well as since going home. She reports she uses a mom cozi and medela pump and uses size 24 flange for both. She reports in the first couple weeks of going home she seemed like she was pumping more milk than she is now and is concerned with her milk production volume. She also reports her right breast produces more than her left breast: with her left breast pumping around 0.5-1 oz and her right breast 1.5-2 oz per pumping session. Infant History: Mom reports this infant has at least 6-8 wet diapers in a day, and around 1 stool a day. She reports he will often skip a day without a stool and go every other instead. She feeds him at the breast or with expressed breast milk about every 3 hours on average. Observations: Christy works well with her , placing him at the breast and latching him in football position. She uses correct alignment and positioning. Mom verbalizes that she knows how to listen for swallows, and during her feeding session while in the OP appointment we identified many swallows during the feeding session. Moms breasts appear on the larger size but WNL. Her nipples are symmetrical and also WNL. We measured her nipples with a tool and both measured size 23mm. We discussed that mom should be using a size 27mm flange instead of the 24 during her pumping sessions which is why she is likely having pain with pumping . Mom does not use any other latch assistive devices. appears relaxed and satisfied after the feeding session. We did a weighted feed during the appointment, and infant took in a total of 2oz. weight: 7lb 6oz Lowest weight: 6lb 15oz Last weight: 7lb 15.3oz Pre-feed weight: 7lb 15.3oz Post-feed weight: 8lb 1.3oz Plan of Care: Encouraged Christy to continue the for each feeding, and to offer a supplement of breast milk or formula after if he does not appear satisfied and relaxed after the feeding. We reviewed hunger signs and feeding cues in an with mom and grandma. We also discussed power pumping and introducing that into her daily pumping routine for the next few days in order to boost her supply. We changed her flange size from a 24mm to a 27mm flange. We reviewed that there should not be any pain with pumping other than a little tugging/stretching sensation . We discussed that at one month an infant should take in about 19-30 oz in 24 hours. This means that if this infant is feeding about 6-8 times a day he should be getting around 3oz. per feeding in order to meet this goal. Because this weighted feed was 1 oz less than the target 3oz per feed it was recommeded to mom to supplement after each feeding whatever baby will take. Mom should also continue to power pump 1-2 times a day to increase her supply. Once she is pumping 3 oz per session she should supplement to ensure baby is getting what he needs per feeding. Follow up plans: Christy plans to follow up with her infants internal controls specialist this week. She reports the is due for his one month well check up and she plans to call the office today to schedule his appointment for this week or early next week. Christy was encouraged to call [facility] again for questions or concerns or if she would like to schedule another follow-up appointment.
== END 2024-06-19 23:59 | disposition home or self-care (01) ==
LOC: ANHOBOP 15:00
PROVIDERS: Visit Provider Obstetrics & Gynecology
DX: O92.79 Other disorders of lactation (principal)
CPT/HCPCS: 99211; G0463